=== PATIENT | female | born 1970 | race Caucasian/White ===

== ENCOUNTER 2021-09-24 14:38 | Outpatient (CLI) | payer BC | END 2021-09-24 14:39 | disposition home or self-care (01) | LOC: CSHMAMMO 14:38 | PROVIDERS: ATTEND Family Medicine | DX: Z12.31 Encounter for screening mammogram for malignant neoplasm of breast (principal) | CPT/HCPCS: 77063; 77067 ==

== ENCOUNTER 2024-02-02 09:15 | Outpatient (CLI) | payer BC | END 2024-02-02 09:16 | disposition home or self-care (01) | LOC: CSHMAMMO 09:15 | PROVIDERS: ATTEND Family Medicine | DX: Z12.31 Encounter for screening mammogram for malignant neoplasm of breast (principal) | CPT/HCPCS: 77063; 77067 ==